=== PATIENT | female | born 1995 | race Caucasian/White ===

== ENCOUNTER 2019-09-05 17:54 | Observation (INO) | payer OTHER ==
[~2019-09-05] VITALS: Ht 165.1 cm; Wt 81.2 kg
[~2019-09-05 17:54] MED LIST: DEPO-PROVERA
[2019-09-05 18:31] LABS: BASOPHILS % 0.4 % (0.0-1.0); EOSINOPHILS # (AUTO) 0.2 (0.0-0.4); EOSINOPHILS % 2.6 % (0.0-6.0); HEMATOCRIT 41.6 % (34.2-44.1); HEMOGLOBIN 13.8 g/dL (12.0-16.0); LYMPHOCYTES # (AUTO) 2.5 (1.0-3.2); LYMPHOCYTES % 30.3 % (18.0-39.1); MEAN CORPUSCULAR HEMOGLOBIN 30.7 pg (28-32); MEAN CORPUSCULAR HGB CONC 33.2 g/dL (31-35); MEAN CORPUSCULAR VOLUME 92.4 fL (81-99); MONOCYTES # (AUTO) 0.8 (0.2-0.8); MONOCYTES % 9.6 % (4.4-11.3); NEUTROPHILS # (AUTO) 4.7 (2.1-6.9); NEUTROPHILS % 56.9 % (38.7-80.0); PLATELET COUNT 287 x10e3/uL (140-360); RED CELL DISTRIBUTION WIDTH 11.9 % (11.7-14.4)
[2019-09-05 18:37] LABS: AMPHETAMINES SCREEN,URINE NEGATIVE (NEGATIVE); BENZODIAZEPINES SCREEN,URINE NEGATIVE (NEGATIVE); PHENCYCLIDINE SCREEN,URINE NEGATIVE (NEGATIVE); PREGNANCY TEST, URINE NEGATIVE (NEGATIVE)
[2019-09-05 18:48] LABS: ALANINE AMINOTRANSFERASE 15 IU/L (0-55); ALBUMIN 4.4 g/dL (3.5-5.0); ALBUMIN/GLOBULIN RATIO 1.3 (0.8-2.0); ALKALINE PHOSPHATASE 102 IU/L (40-150); ANION GAP 11.8 mmol/L (8-16); BLOOD UREA NITROGEN 10 mg/dL (7-26); BUN/CREATININE RATIO 12 (6-25); CALCIUM 9.6 mg/dL (8.4-10.2); CARBON DIOXIDE 26 mmol/L (22-29); CHLORIDE 105 mmol/L (98-107); CREATINE KINASE 309 IU/L (29-168); CREATININE, SERUM 0.83 mg/dL (0.57-1.11); EST GLOMERULAR FILTRATION RATE > 60 ML/MIN (60-); GLUCOSE 86 mg/dL (74-118); POTASSIUM 3.8 mmol/L (3.5-5.1); SODIUM 139 mmol/L (136-145)
[2019-09-05] MEDS ORDERED: ENOXAPARIN INJ 80 MG/0.8 ML SYR SC STA (19:00)
[2019-09-05] MEDS ORDERED: ONDANSETRON HCL INJ 2MG/ML 2ML 2 MG/ML VIAL IV PRN (19:30)
[2019-09-05] MEDS ORDERED: MORPHINE SULFATE INJ 4 MG/ML INJ 1ML IV PRN (19:45)
[2019-09-05] MEDS ORDERED: ASPIRIN 81 MG CHEW TAB PO ONE (19:45)
[2019-09-05] MEDS ORDERED: IOPAMIDOL 370 MG/ML 200 ML INFUS..BTL INJ ONE (19:59)
[2019-09-05] MEDS ORDERED: SODIUM CHLORIDE 0.9% 50ML 50 ML ONE (19:59)
[2019-09-05] MEDS: SODIUM CHLORIDE 0.9% 1000ML 1,000 ML IV SCH (20:05)
--- NOTE | 2019-09-05 20:14 | Diagnostic Imaging Report ---
EXAM: CT Chest WITH contrast (PE protocol) 09/05/2019 6:14 PM INDICATION: Chest pain COMPARISON: None TECHNIQUE: Chest was scanned utilizing a multidetector helical scanner from the lung apex through the level of the adrenal glands with administration of IV contrast. Coronal and sagittal reformations were obtained. Pulmonary embolism protocol was performed with special attention to the pulmonary arteries . IV CONTRAST: 100 mL of Isovue 370 COMPLICATIONS: None RADIATION DOSE: Total DLP: 451 mGy*cm Estimated effective dose: (DLP x 0.014 x size factor) mSv CTDIvol has been reviewed. It is below the limits set by the Radiation Protocol Committee (RPC). Dose modulation, iterative reconstruction, and/or weight based adjustment of the mA/kV was utilized to reduce the radiation dose to as low as reasonably achievable. FINDINGS: LINES/ TUBES: None. LUNGS AND AIRWAYS: The lungs are unremarkable. Airways are normal. PLEURA: The pleural spaces are clear. HEART AND MEDIASTINUM: The thyroid gland is normal. No mediastinal, hilar or axillary lymphadenopathy. The heart is normal in size. There is no pericardial effusion. UPPER ABDOMEN: Unremarkable. BONES: The visualized bony thorax is within normal limits. SOFT TISSUES: Unremarkable. IMPRESSION: No pulmonary embolus. No acute CT abnormality in the chest. Signed by: Yair Owens DO on 09/05/2019 8:10 PM
[2019-09-05 21:00] VITALS: BP 107/78
--- OUTSIDE RECORDS SUMMARY | 2019-09-05 21:23 | XMS REPORT ---
Author [facility] Address Unknown Phone Unavailable Care Team Providers [employer] Counter Assistant Name Role Phone ORLIN CAROLE Unavailable Unavailable Problems This patient has no known problems. Allergies, Adverse Reactions, Alerts This patient has no known allergies or adverse reactions. Medications This patient has no known medications. Results Test Description Test Time Test Comments Text Results Atomic Results Result Comments CT CHEST W 2019-09-05 20:05:00 [place] [address] Patient Name: DIEGO CHILEL MR #: [id number] : 1995 Age/Sex: 24/F Req #: [id number] Adm Physician: Ordered by: CAROLE ORDAZ DO Report #: [id number] Location: ER Room/Bed: Procedure: [id number] CT/CT CHEST W Exam Date: 09/05/19 Exam Time: 1929 REPORT STATUS: Signed EXAM: CT Chest WITH contrast (PE protocol) 09/05/2019 6:14 PM IND ICATION: Chest pain COMPARISON: None TECHNIQUE: Chest was scanned utilizing a multidetector helical scanner from the lung apex through the level of the adrenal glands with administration of IV contrast. Coronal and sagittal reformations were obtained. Pulmonary embolism protocol was performed with special attention to the pulmonary arteries . IV CONTRAST: 100 mL of Isovue 370 COMPLICATIONS: None RADIATION DOSE: Total DLP: 451 mGy*cm Estimated effective dose: (DLP x 0.014 x size factor) mSv CTDIvol has been reviewed. It is below the limits set by the Radiation Protocol Committee (RPC). Dose modulation, iterative reconstruction, and/or weight based adjustment of the mA/kV was utilized to reduce the radiation dose to as low as reasonably achievable. FINDINGS: LINES/ TUBES: None. LUNGS AND AIRWAYS: The lungs are unremarkable. Airways are normal. PLEURA: The pleural spaces are clear. HEART AND ME DIASTINUM: The thyroid gland is normal. No mediastinal, hilar or axillary lymphadenopathy. The heart is normal in size. There is no pericardial effusion. UPPER ABDOMEN: Unremarkable. BONES: The visualized bony thorax is within normal limits. SOFT TISSUES: Unremarkable. IMPRESSION: No pulmonary embolus. No acute CT abnormality in the chest. Signed by: Yair Owens DO on 09/05/2019 8:10 PM Dictated By: YAIR OWENS DO 09 Transcribed By: DAPHNIE on 09/05/192009 COPY TO: CAROLE ORDAZ DO
[2019-09-05] MEDS ORDERED: ACETAMINOPHEN 325 MG TAB PO PRN (23:45)
[2019-09-06] VITALS (7 sets, daily range): BP systolic 102–118; BP diastolic 56–65
[2019-09-06] MEDS: SODIUM CHLORIDE 0.9% 1000ML 1,000 ML IV SCH ×2 (03:28→11:36)
[2019-09-06 03:46] LABS: BASOPHILS % 0.4 % (0.0-1.0); EOSINOPHILS # (AUTO) 0.2 (0.0-0.4); EOSINOPHILS % 1.8 % (0.0-6.0); LYMPHOCYTES # (AUTO) 2.2 (1.0-3.2); LYMPHOCYTES % 26.4 % (18.0-39.1); MEAN CORPUSCULAR HEMOGLOBIN 30.4 pg (28-32); MEAN CORPUSCULAR HGB CONC 33.3 g/dL (31-35); MEAN CORPUSCULAR VOLUME 91.2 fL (81-99); MONOCYTES # (AUTO) 1.1 (0.2-0.8); MONOCYTES % 13.4 % (4.4-11.3); NEUTROPHILS # (AUTO) 4.7 (2.1-6.9); NEUTROPHILS % 57.8 % (38.7-80.0); PLATELET COUNT 227 x10e3/uL (140-360); RED BLOOD COUNT 3.62 x10e6/uL (3.6-5.1); RED CELL DISTRIBUTION WIDTH 11.9 % (11.7-14.4)
[2019-09-06 04:08] LABS: CREATINE KINASE MB 0.8 ng/mL (0-5.0)
[2019-09-06 04:27] LABS: ALANINE AMINOTRANSFERASE 11 IU/L (0-55); ALBUMIN/GLOBULIN RATIO 1.3 (0.8-2.0); ALKALINE PHOSPHATASE 84 IU/L (40-150); ANION GAP 9.5 mmol/L (8-16); BLOOD UREA NITROGEN 12 mg/dL (7-26); BUN/CREATININE RATIO 13 (6-25); CALCIUM 8.7 mg/dL (8.4-10.2); CARBON DIOXIDE 27 mmol/L (22-29); CHLORIDE 108 mmol/L (98-107); EST GLOMERULAR FILTRATION RATE > 60 ML/MIN (60-); GLUCOSE 100 mg/dL (74-118); POTASSIUM 3.5 mmol/L (3.5-5.1); SODIUM 141 mmol/L (136-145)
[2019-09-06 04:31] LABS: ALBUMIN 3.5 g/dL (3.5-5.0)
--- NOTE | 2019-09-06 07:48 | Diagnostic Imaging Report ---
EXAMINATION: CHEST SINGLE (PORTABLE) INDICATION: Chest pain, history of vaping COMPARISON: Chest CT 09/05/2019 FINDINGS: TUBES and LINES: None. LUNGS: Normal lung volumes. Subtle perihilar haziness and mild central bronchial wall thickening. No consolidations. PLEURA: No pleural effusion or pneumothorax. HEART AND MEDIASTINUM: The cardiomediastinal silhouette is unremarkable. BONES AND SOFT TISSUES: No acute osseous lesion. Soft tissues are unremarkable. UPPER ABDOMEN: No free air under the diaphragm. IMPRESSION: Subtle findings of bronchitis. Signed by: Yair Owens DO on 09/06/2019 7:45 AM
[2019-09-06] MEDS ORDERED: birth control pills PO (08:17)
[2019-09-06 12:30] LABS: CREATINE KINASE MB 0.8 ng/mL (0-5.0)
--- NOTE | 2019-09-06 23:14 | Discharge Summary ---
CHIEF COMPLAINT: Chest pain. HISTORY OF PRESENT ILLNESS: The patient is a 24-year-old female, who was admitted via the emergency department with right-sided intermittent chest pain for 6 days, that migrated to the left side of the chest/under the left axilla, described as pressure, but increased to a sharp pain. The pain progressed and Dr. Peace with her PCP office, ordered a chest x-ray, but the patient did not want to wait and came directly to the emergency department. Her PCP is Dr. Man Fernandez. Naproxen had been ineffective. The patient vapes and stopped vaping 1 week prior to arrival when her signs and symptoms started. She denied any sick contacts or recent travel. She did have a COVID-19 test done in [place] on September 02 with the results expected back within 5 business days from that date. PAST MEDICAL HISTORY: She denies any. PAST SURGICAL HISTORY: None. FAMILY HISTORY: Maternal grandmother had hypertension and DVT. SOCIAL HISTORY: The patient vaped for 3 months, "one bar every 2 days, 5% per bar." She has some history of social drinking, but not heavy drinking. Denies any illicit drug use. ALLERGIES: NO KNOWN DRUG ALLERGIES. MEDICATIONS: She takes TriNessa control pills at home. ADMITTING DIAGNOSES: Include: 1. Chest pain, rule out myocardial infarction. 2. Dyspnea on exertion. 3. Acute bronchitis. 4. Vaping. 5. Fatigue. 6. Suspected myocarditis. 7. Possible coronavirus. DISCHARGE DIAGNOSES: Include: 1. Chest pain, rule out myocardial infarction. 2. Dyspnea on exertion. 3. Acute bronchitis. 4. Vaping. 5. Fatigue. 6. Suspected myocarditis. 7. Possible coronavirus. HOSPITAL COURSE: On admission, temperature 99.9, heart rate 75, respirations 18, blood pressure 135/71. WBCs 8.31, hemoglobin 13.8, hematocrit 41.6, and platelets 287. Sodium 139, potassium 3.8, chloride 105, CO2 of 26, BUN 10, creatinine 0.83, estimated GFR greater than 60. Calcium 9.6. LFTs within normal limits. Her cardiac biomarkers are as follows. Creatine kinase changed from 309 to 208 to 193. Her CK-MB went from 2.0 to 0.8 to 0.8. Troponin I changed from 1.013 to 0.716 to 0.742. Urine test was negative. Urine drug screen was negative. Her chest CT showed no acute abnormality. No pulmonary embolus. Her chest x-ray showed subtle findings of bronchitis. She came in on September 04, is leaving today with most recent vital signs with temperature 98.1, heart rate 71, respirations 18, blood pressure 109/62, oxygen saturation 100% on room air. WBCs 8.21, hemoglobin 11, hematocrit 33. BUN 12, creatinine 0.9, estimated GFR greater than 60, mild hypokalemia with potassium 3.5. At time of visit, the patient complains of being tired with fatigue. She states her chest pain comes and goes in waves and it wakes her up at night. She denies chest pain at the time of exam and is not reproducible with palpation of the muscle under the axilla. The patient on menses during her stay. Cardiology was consulted. Echocardiogram showed an ejection fraction of 60%. The patient was seen and evaluated by Dr. Costa. He states from his standpoint, the patient can be discharged home and follow up with him in his office. The patient has been encouraged to stop vaping entirely. There is suspected myocarditis, which Dr. Costa will further evaluate. Dr. Jones with Infectious Disease was consulted. Her COVID-19 test results are expected back within 5 business days from the . The patient can follow up with Dr. Jones in his office in 3 weeks. Continue regular diet. Activity level as tolerated. Dictated by Jagdish Martines NP MD JUDY JangP/CECEL /[id number]
--- NOTE | 2019-09-08 17:21 | Consultation ---
DATE OF CONSULTATION: 09/06/2019 REASON FOR CONSULTATION: Chest pain. CHIEF COMPLAINT: Chest pain. HISTORY OF PRESENT ILLNESS: This is a 24-year-old female with no medical history. The patient presents to [facility] with complaints of right-sided chest pain with some shortness of breath and lethargy, sore throat. Cardiac enzymes were checked. Initially troponin of 1, repeat is 0.7, next is 0.7. Cardiology was consulted to evaluate the patient. The patient is seen in room with the bedside nurse. The patient reports her right-sided chest pain started about 6-7 days ago after vaping. It comes and goes, at first felt like pressure and radiate to the mid sternum. It is sharp, worse with leaning forward with some shortness of breath. Also reports lethargy, sore throat, feeling malaise for the past several days. Denies any fevers or chills. Denies any productive cough. At this time, the patient reports intermittent chest discomfort with palpation and deep breathing. PAST MEDICAL HISTORY: Denies any medical history. SURGICAL HISTORY: Denies any surgical history. 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 Positive for alcohol use. Positive for vaping. FAMILY HISTORY: Father alive with history of CAD. Mother alive, report is healthy. MEDICATIONS: No home medications. REVIEW OF SYSTEMS: GENERAL: Positive for fatigue and malaise. Denies any fevers or chills. SKIN: No rashes or bruises. HEENT: Denies any nausea, vomiting, vision changes, blurred vision, double vision, epistaxis, sore throat. CARDIAC: Positive for chest pain as in the HPI. Denies any orthopnea, PND, or lower extremity edema. RESPIRATORY: Positive for shortness of breath. Positive for intermittent cough. Denies any hemoptysis. GI: Reports good appetite. No nausea, vomiting, diarrhea, melena, tarry bloody stools. URINARY: Denies any frequency, urgency, or dysuria. VASCULAR: Denies any lower extremity edema, claudication. MUSCULOSKELETAL: Denies any muscle weakness, joint pains. NEUROLOGIC: Denies any tingling, tremors, weakness, paralysis, blackout. HEMATOLOGY: Denies any anemia, bruising. ENDOCRINE: Denies any heat or cold intolerance. No polyuria, polydipsia, or polyphagia. PHYSICAL EXAMINATION: VITAL SIGNS: Height 6 feet 5 inches, weight 179 pounds, temperature 98.1, pulse 71, respiratory rate 18, blood pressure 109/62, and pulse ox 100% on room air. GENERAL: Appears stated age, reliable informant, in no acute distress. SKIN: No rashes or bruises noted. HEENT: Normocephalic. Pupils are equal and reactive. Extraocular movements intact. NECK: Trachea midline. No JVD. No carotid bruit. HEART: Regular rate and rhythm. No murmurs or gallops. LUNGS: Bilateral breath sounds. Clear to auscultation. ABDOMEN: Soft, nontender, and nondistended. No organomegaly noted. MUSCULOSKELETAL: Good muscle strength throughout. VASCULAR: +2 radial pulses bilaterally. +2 DP and PT pulses bilaterally. NEUROLOGIC: Cranial nerves II through XII seem intact. LABORATORY DATA: Sodium 141, potassium 3.5, chloride 108, bicarb 27, BUN 12, creatinine 0.9, glucose 100. Troponin 1, next 0.7 and next 0.7, white count 8, hemoglobin 11, hematocrit 33, platelets 227. D-dimer 0.4 mg. negative. Urine drug screen is negative. CT of chest negative for PE. Chest x-ray, subtle findings suggestive of bronchitis. EKG, normal sinus rhythm. ASSESSMENT: 1. Malaise, fatigue, sore throat. 2. Questionable COVID. 3. Chest pain. 4. Small pericarditis. PLAN: The patient presents with malaise, fatigue, sore throat and intermittent chest pains with elevated troponin. The symptoms suggest possible COVID. However, elevated troponin could be secondary to mild pericarditis. Recommend ID consult for further workup for possible questionable COVID. We will continue to monitor. Further recommendations as clinical course dictates. Thank you very much for this consult. Dictated by Michael Fam, MIRTHA Sherman Costa MD DC/WILL /[id number]
== END 2019-09-06 18:39 | disposition home or self-care (01) ==
LOC: ER 17:54 → ERHOLD 21:20 → MED/SURG 21:27
PROVIDERS: ADMIT Internal Medicine; ATTEND Internal Medicine
DX: R07.9 Chest pain, unspecified (principal); J20.9 Acute bronchitis, unspecified; U07.0 Vaping-related disorder; R06.00 Dyspnea, unspecified; R53.83 Other fatigue; Z82.49 Family history of ischemic heart disease and other diseases of the circulatory system; Z84.89 Family history of other specified conditions; E87.6 Hypokalemia
CPT/HCPCS: 36415; 71045; 71260; 80053; 80307; 81025; 82550; 82553; 84484; 85025; 85379; 93005; 93306; 99284; G0378; J7030; Q9967